=== PATIENT | female | born 1965 | race Caucasian/White ===

== ENCOUNTER 2017-09-04 12:46 | Emergency (ER) | payer BC, OTHER ==
--- NOTE | 2017-09-04 13:45 | RAD ---
INDICATION: RIGHT side chest pain for 3 weeks exacerbated by coughing. COMPARISON: No relevant prior exams available on the [facility] PACS for comparison. TECHNIQUE: Dual energy PA and routine lateral views of the chest were obtained. REPORT: Clear lungs and pleural spaces. Negative for pneumothorax. The heart, pulmonary vasculature, and mediastinal contours are unremarkable. No rib fracture evident. Gallbladder fossa level surgical clips. IMPRESSION: No evidence for acute intrathoracic disease.
[2017-09-04 15:22] LABS: ABS Basophils 0.1 10^3/ul (0-0.2); ABS Eosinophils 0.2 10^3/ul (0-0.6); ABS Lymphocytes 1.8 10^3/ul (1.0-4.8); ABS Monocytes 0.5 10^3/ul (0-0.8); ABS Nucleated RBC 0 10^3/ul; Eosinophil % 2.3 % (0-6); Hematocrit 46 % (35-47); Hemoglobin 15.3 g/dl (12.0-16.0); Lymphocyte % 20.6 % (25-47); Mean Corpuscular HGB Conc 34 g/dl (31-36); Mean Corpuscular Hemoglobin 28 pg (27-31); Mean Corpuscular Volume 84 fL (80-97); Mean Platelet Volume 8 um3 (7.4-10.4); Nucleated Red Blood Cells % 0; Platelet Count 284 10^3/ul (150-450); Red Blood Count 5.42 10^6/ul (4.0-5.4); Red Cell Distribution Width 15 % (10.5-15); White Blood Count 8.7 10^3/ul (3.5-10.8)
[2017-09-04 15:44] LABS: EGFR Non-African American 71.5 (>60)
[2017-09-04 17:10] LABS: INR 0.98 (0.77-1.02)
[2017-09-04 18:13] VITALS: BP 117/73
--- NOTE | 2017-09-04 21:19 | ED ---
Nakul Ivey Jennifer, scribed for Brian Gan MD on 09/04/17 at 1543 . HPI Chest Pain - HPI Summary HPI Summary: The patient is a 51 year old female who presents to the ED with pain in the upper right chest for the past three weeks. She describes it as a constant pain , and last night it began to feel like a pressure. She additionally complains of a bit of shortness of breath and cough. The patient denies swelling in the legs, nausea, lightheadedness, sweats, and any recent injuries. - History of Current Complaint Chief Complaint: EDChestPainROMI Time Seen by Provider: 09/04/17 15:36 Hx Obtained From: Patient Onset/Duration: Started Weeks Ago - 3 weeks, Still Present, Worse Since Timing: Constant Initial Severity: Mild Current Severity: Mild Pain Intensity: 4 Pain Scale Used: 0-10 Numeric Chest Pain Radiates: No Aggravating Factor(s): Nothing Alleviating Factor(s): Nothing Associated Signs and Symptoms: Positive: Other: - Shortness of breath, cough. NEGATIVE: swelling in legs, nausea, lightheadedness, sweats, innjuries - Allergy/Home Medications Allergies/Adverse Reactions: Allergies Allergy/AdvReac Type Severity Reaction Status Date / Time No Known Allergies Allergy Verified 09/04/17 15:44 Home Medications: Home Medications NK [No Home Medications Reported] 09/04/17 [History Confirmed 09/04/17] PMH/Surg Hx/FS Hx/Imm Hx Endocrine/Hematology History: Denies: Hx Diabetes Cardiovascular History: Denies: Hx Hypertension - Immunization History Date of Tetanus Vaccine: 04/20/2006 Infectious Disease History: No Infectious Disease History: Denies: Traveled Outside the [place] in Last 30 Days - Family History Known Family History: Positive: Diabetes - Maternal grandmother - Social History Substance Use Type: Reports: None Review of Systems Negative: Skin Diaphoresis Positive: Chest Pain Positive: Shortness Of Breath, Cough Negative: Nausea Negative: Edema Neurological: Negative - Lightheaded All Other Systems Reviewed And Are Negative: Yes Physical Exam - Summary Physical Exam Summary: Appearance: The patient is well-nourished in no acute distress and in no acute pain. Skin: The skin is warm and dry and skin color reflects adequate perfusion. HEENT: ~The head is normocephalic and atraumatic. The pupils are equal and reactive. The conjunctivae are clear and without drainage. ~Nares are patent and without drainage. ~Mouth reveals moist mucous membranes and the throat is without erythema and exudate. ~The external ears are intact. The ear canals are patent and without drainage. The tympanic membranes are intact. Neck: the neck is supple with full range of motion and non-tender. There are no carotid bruits. ~There is no neck vein distension. Respiratory: Chest is non-tender. ~Lungs are clear to auscultation and breath sounds are symmetrical and equal. Cardiovascular: Heart is regular rate and rhythm. ~There is no murmur or rub auscultated. ~~There is no peripheral edema and pulses are symmetrical and equal. Abdomen: The abdomen is soft and non-tender. ~There are normal bowel sounds heard in all four quadrants and there is no organomegaly palpated. Musculoskeletal: There is no back tenderness noted. ~Extremities are non-tender with full range of motion. ~There is good capillary refill. ~There is no peripheral edema or calf tenderness elicited. Neurological: Patient is alert and oriented to person, place and time. ~The patient has symmetrical motor strength in all four extremities. ~Cranial nerves are grossly intact. Deep tendon reflexes are symmetrical and equal in all four extremities. Psychiatric: The patient has an appropriate affect and does not exhibit any anxiety or depression. Triage Information Reviewed: Yes Vital Signs On Initial Exam: Initial Vitals Temp Pulse Resp BP Pulse Ox 97.7 F 84 16 132/73 95 09/04/17 12:55 09/04/17 12:55 09/04/17 12:55 09/04/17 12:55 09/04/17 12:55 Vital Signs Reviewed: Yes Diagnostics - Vital Signs Vital Signs Temp Pulse Resp BP Pulse Ox 09/04/17 14:47 97.9 F 83 17 139/90 96 09/04/17 12:55 97.7 F 84 16 132/73 95 - Laboratory Lab Results: Lab Results 09/04/17 09/04/17 09/04/17 Range/Units 14:28 14:28 14:28 WBC 8.7 (3.5-10.8) 10^3/ul RBC 5.42 H (4.0-5.4) 10^6/ul Hgb 15.3 (12.0-16.0) g/dl Hct 46 (35-47) % MCV 84 (80-97) fL MCH 28 (27-31) pg MCHC 34 (31-36) g/dl RDW 15 (10.5-15) % Plt Count 284 (150-450) 10^3/ul MPV 8 (7.4-10.4) um3 Neut % (Auto) 69.7 (38-83) % Lymph % (Auto) 20.6 L (25-47) % Orange % (Auto) 5.8 (1-9) % Eos % (Auto) 2.3 (0-6) % Baso % (Auto) 1.6 (0-2) % Absolute Neuts (auto) 6.0 (1.5-7.7) 10^3/ul Absolute Lymphs (auto) 1.8 (1.0-4.8) 10^3/ul Absolute Monos (auto) 0.5 (0-0.8) 10^3/ul Absolute Eos (auto) 0.2 (0-0.6) 10^3/ul Absolute Basos (auto) 0.1 (0-0.2) 10^3/ul Absolute Nucleated RBC 0 10^3/ul Nucleated RBC % 0 Sodium Pending Potassium Pending Chloride Pending Carbon Dioxide Pending Anion Gap Pending BUN Pending Creatinine Pending Est GFR ( Amer) Pending Est GFR (Non-Af Amer) Pending BUN/Creatinine Ratio Pending Glucose Pending Lactic Acid 1.4 (0.5-2.0) mmol/L Calcium Pending Total Bilirubin Pending AST Pending ALT Pending Alkaline Phosphatase Pending Troponin I 0.00 (<0.04) ng/mL Total Protein Pending Albumin Pending Globulin Pending Albumin/Globulin Ratio Pending Result Diagrams: 09/04/17 14:28 09/04/17 14:28 Lab Statement: Any lab studies that have been ordered have been reviewed, and results considered in the medical decision making process. - Radiology CXR Xray Interpretation: No Acute Changes - No evidence for acute intrathoracic disease. Dr. Gan has reviewed this report. Radiology Interpretation Completed By: Radiologist - EKG 13:13 Cardiac Rate: NL EKG Rhythm: Sinus Rhythm - 71 BPM Chest Pain Course/Dx - Course Course Of Treatment: Ms. Smith presented with a chest pain that she has had for many days. She got concerned that it could be her heart. Her W/U including two troponins and d-dimer was negative and I recommmended close F/U. - Diagnoses Provider Diagnoses: Chest pain Discharge - Discharge Plan Condition: Stable Disposition: HOME Patient Education Materials: Chest Pain (ED) Referrals: Lorrie Romero MD [Primary Care Provider] - 3 Days Additional Instructions: Follow up with your primary care physician in three days. Return to the emergency department for any new or worsening symptoms. The documentation as recorded by the Nakul calvo Jennifer accurately reflects the service I personally performed and the decisions made by me, Brian Gan MD.
== END 2017-09-04 18:15 | disposition home or self-care (01) ==
LOC: ED 12:46
DX: R07.89 Other chest pain (principal)
CPT/HCPCS: 36415; 71046; 80053; 83605; 84484; 85025; 85379; 85610; 93005; 99282

== ENCOUNTER 2018-05-03 18:28 | Emergency (ER) | payer OTHER ==
[2018-05-03] MEDS ORDERED: NS 0.9% 1000 ML* 1,000 ML IV ONE (20:27)
[2018-05-03 20:48] LABS: ABS Basophils 0.1 10^3/ul (0-0.2); ABS Eosinophils 0.2 10^3/ul (0-0.6); ABS Lymphocytes 1.7 10^3/ul (1.0-4.8); ABS Monocytes 0.5 10^3/ul (0-0.8); ABS Neutrophils 3.9 10^3/ul (1.5-7.7); ABS Nucleated RBC 0 10^3/ul; Eosinophil % 2.7 % (0-6); Hematocrit 41 % (35-47); Hemoglobin 13.8 g/dl (12.0-16.0); Lymphocyte % 26.7 % (25-47); Mean Corpuscular HGB Conc 34 g/dl (31-36); Mean Corpuscular Hemoglobin 28 pg (27-31); Mean Corpuscular Volume 84 fL (80-97); Mean Platelet Volume 8.7 um3 (7.4-10.4); Nucleated Red Blood Cells % 0.3; Platelet Count 249 10^3/ul (150-450); Red Cell Distribution Width 15 % (10.5-15); White Blood Count 6.3 10^3/ul (3.5-10.8)
--- NOTE | 2018-05-03 20:50 | RAD ---
EXAM: CT Head Without Intravenous Contrast EXAM DATE/TIME: 05/03/2018 8:47 PM CLINICAL HISTORY: 52 years old, female; Injury or trauma; Fall; Patient HX: Had syncopal episode and fell and hit head; Additional info: Head injury TECHNIQUE: Axial computed tomography images of the head/brain without intravenous contrast. All CT scans at this facility use at least one of these dose optimization techniques: automated exposure control; mA and/or kV adjustment per patient size (includes targeted exams where dose is matched to clinical indication); or iterative reconstruction. COMPARISON: No relevant prior studies available. FINDINGS: Brain: Normal. No hemorrhage. No significant white matter disease. No edema. Ventricles: Normal. No ventriculomegaly. Bones/joints: Normal. No acute fracture. Sinuses: Normal as visualized. No acute sinusitis. Mastoid air cells: Normal as visualized. No mastoid effusion. Soft tissues: Normal. IMPRESSION: No acute intracranial pathology. To contact [facility] with a general question: [facility] - [phone] For direct physician to physician contact: Physician Hotline - [phone] [facility] ([facility] Facility ID #[id number])
--- NOTE | 2018-05-03 20:52 | ED ---
Syncope/Near Syncope - HPI Summary HPI Summary: Patient is a 52 y/o F w/ c/o syncopal episode today at 1500. She reports that she was at a table with some friends, was drinking water, laughed and began to choke on water, stood up and passed out, hitting her head. She states she did not feel the episode onsetting. Bladder incontinence is denied. She notes that at the time she was at a winery but states she had not been drinking a lot of alcohol. Patient reports a similar previous episode six months ago. She states that for this episode she woke up in the middle of the night trying to catch her breath, She states she went to get up too quickly and passed out. Patient reports that she went to PCP after this episode, PCP did not believe it was anything concerning. MCCLENDON is reported as well, patient notes she took ASA with relief in Sx. Hx of DVT and sleep apnea is noted, patient states she is on a breathing machine for the past couple of months. On triage, pain is rated 6/10, nothing is noted to aggravate/alleviate Sx. and it is noted that patient took 500 mg ibuprofen 1730 [employer]. Home medications and allergies are reviewed. - History Of Current Complaint Chief Complaint: EDHeadInjury Time Seen by Provider: 05/03/18 20:11 Hx Obtained From: Patient Onset/Duration: Lasting Hours - syncope occurred 1500 today, Still Present - MCCLENDON , Resolved - syncope Timing: Constant - MCCLENDON Context: Witnessed Activity At Onset: Other - standing up Associated Head Trauma: Yes Aggravating Factor(s): Nothing Alleviating Factor(s): Nothing Associated Signs And Symptoms: Head Trauma (Recent), Headache, Other - NEGATIVE : incontinence - Allergies/Home Medications Allergies/Adverse Reactions: Allergies Allergy/AdvReac Type Severity Reaction Status Date / Time No Known Allergies Allergy Verified 09/04/17 15:44 PMH/Surg Hx/FS Hx/Imm Hx Endocrine/Hematology History: Denies: Hx Diabetes Cardiovascular History: Reports: Hx Deep Vein Thrombosis Denies: Hx Hypertension Respiratory History: Reports: Hx Sleep Apnea - Immunization History Date of Tetanus Vaccine: 04/20/2006 Infectious Disease History: No Infectious Disease History: Denies: Traveled Outside the [place] in Last 30 Days - Family History Known Family History: Positive: Diabetes - Maternal grandmother - Social History Alcohol Use: Occasionally Substance Use Type: Reports: None Smoking Status (MU): Never Smoked Tobacco Review of Systems Positive: other - NEGATIVE: bladder incontinence Neurological: Other - head injury Positive: Headache, Syncope All Other Systems Reviewed And Are Negative: Yes Physical Exam - Summary Physical Exam Summary: VITAL SIGNS: Reviewed. GENERAL: Patient is a well-developed and nourished female who is lying comfortable in the stretcher. Patient is not in any acute respiratory distress. HEAD AND FACE: No signs of trauma. No ecchymosis, hematomas or skull depressions. No sinus tenderness. EYES: PERRLA, EOMI x 2, No injected conjunctiva, no nystagmus. EARS: Hearing grossly intact. Ear canals and tympanic membranes are within normal limits. MOUTH: Oropharynx within normal limits. NECK: Supple, trachea is midline, no adenopathy, no JVD, no carotid bruit, no c- spine tenderness, neck with full ROM. CHEST: Symmetric, no tenderness at palpation LUNGS: Clear to auscultation bilaterally. No wheezing or crackles. CVS: Regular rate and rhythm, S1 and S2 present, no murmurs or gallops appreciated. ABDOMEN: Soft, non-tender. No signs of distention. No rebound no guarding, and no masses palpated. Bowel sounds are normal. EXTREMITIES: FROM in all major joints, no edema, no cyanosis or clubbing. NEURO: Alert and oriented x 3. No acute neurological deficits. Speech is normal and follows commands. GCS 15. SKIN: Dry and warm Triage Information Reviewed: Yes Vital Signs On Initial Exam: Initial Vitals Temp Pulse Resp BP Pulse Ox 97.7 F 66 14 105/63 94 05/03/18 18:30 05/03/18 18:30 05/03/18 18:30 05/03/18 18:30 05/03/18 18:30 Vital Signs Reviewed: Yes Diagnostics - Vital Signs Vital Signs Temp Pulse Resp BP Pulse Ox 05/03/18 18:30 97.7 F 66 14 105/63 94 - Laboratory Result Diagrams: 05/03/18 20:37 05/03/18 20:37 Lab Statement: Any lab studies that have been ordered have been reviewed, and results considered in the medical decision making process. - CT brain ct CT Interpretation: No Acute Changes CT Interpretation Completed By: Radiologist - Brain CT showed no acute intracranial abnormality. This report was reviewed by ed physician - EKG 2036 Cardiac Rate: NL - rate of 62 bpm EKG Rhythm: Sinus Rhythm EKG Interpretation: Normal axis. Normal interval. No ischemic changes. Re-Evaluation - Re-Evaluation First Eval Re-Evaluation Time: 21:30 Change: Improved Comment: Patient reports feeling better, denies dizziness. Discussed that episode was most likely vasovagal syncopy. Patient was instructed to follow up with PCP, holter monitor is recommended. She is agreeable with discharge. Course/Dx Course Of Treatment: Patient is a 52 y/o F w/ c/o syncopal episode today at 1500. She reports that she was at a table with some friends, was drinking water , laughed and began to choke on water, stood up and passed out, hitting her head. She states she did not feel the episode onsetting. Bladder incontinence is denied. She notes that at the time she was at a winery but states she had not been drinking a lot of alcohol. Patient reports a similar previous episode six months ago. She states that for this episode she woke up in the middle of the night trying to catch her breath, She states she went to get up too quickly and passed out. Patient reports that she went to PCP after this episode, PCP did not believe it was anything concerning. MCCLENDON is reported as well, patient notes she took ASA with relief in Sx. Hx of DVT and sleep apnea is noted, patient states she is on a breathing machine for the past couple of months. Physical exam showed patient is alert and oriented x 3. No acute neurological deficits. Speech is normal and follows commands. GCS 15. During ED course, patient was given fluids. Brain CT showed no acute intracranial abnormality. EKG showed sinus rhythm w/ rate of 62 BPM, Normal axis. Normal interval. No ischemic changes. 2129 - Patient reports feeling better, denies dizziness. Discussed that episode was most likely vasovagal syncopy. Patient was instructed to follow up with PCP, holter monitor is recommended. She is agreeable with discharge. Dx of vasovagal episode. - Diagnoses Provider Diagnoses: Vasovagal episode Discharge - Sign-Out/Discharge Documenting (check all that apply): Patient Departure - discharge - Discharge Plan Condition: Stable Disposition: HOME Patient Education Materials: Syncope (ED) Referrals: Lorrie Romero MD [Primary Care Provider] - 2 Days Additional Instructions: RETURN TO THE EMERGENCY DEPARTMENT FOR CHANGING OR WORSENING SYMPTOMS. FOLLOW UP WITH PRIMARY CARE PHYSICIAN IN 1-2 DAYS. - Attestation Statements Document Initiated by Scribe: Yes Documenting Scribe: Armin Kelley Provider For Whom Scribe is Documenting (Include Credential): Jatin Verma MD Scribe Attestation: Armin Ivey , scribed for Jatin Verma MD on 05/03/18 at 2203.
[2018-05-03 20:57] LABS: INR 1.03 (0.77-1.02)
[2018-05-03 21:05] LABS: EGFR Non-African American 78.7 (>60)
[2018-05-03 21:53] VITALS: BP 113/71
== END 2018-05-03 21:55 | disposition home or self-care (01) ==
LOC: ED 18:28
DX: R55 Syncope and collapse (principal); S09.90XA Unspecified injury of head, initial encounter; R51 Headache; W18.00XA Striking against unspecified object with subsequent fall, initial encounter; Y92.9 Unspecified place or not applicable
CPT/HCPCS: 36415; 70450; 80053; 82550; 83605; 83735; 84443; 84484; 85025; 85610; 85730; 93005; 99282

== ENCOUNTER 2019-06-04 13:26 | Emergency (ER) | payer OTHER ==
[2019-06-04 13:43] VITALS: BP 122/76
--- NOTE | 2019-06-04 13:44 | UC ---
Truncal Trauma HPI - HPI Summary HPI Summary: 53 yo female presents with RIGHT chest wall pain. She tells me that on 05/29 she was drinking at a bar and sitting on a stool and fell backwards onto the floor landing on her right side and chest. Since that time has had right rib pain that is worse with cough and deep breaths. She has been taking tylenol and ibuprofen for discomfort with little relief. Feels better with rest, but is worse with movement. Denies SOB, chest pain, n/v. - History Of Current Complaint Chief Complaint: UCTrauma Stated Complaint: PAIN IN UPPER RIB AREA FELL Time Seen by Provider: 06/04/19 13:44 Hx Obtained From: Patient Onset/Duration: Sudden Onset Severity Initially: Moderate Severity Currently: Moderate Pain Intensity: 6 Pain Scale Used: 0-10 Numeric - Allergies/Home Medications Allergies/Adverse Reactions: Allergies Allergy/AdvReac Type Severity Reaction Status Date / Time No Known Allergies Allergy Verified 09/04/17 15:44 Home Medications: Home Medications Ibuprofen TAB* [Motrin TAB* 800 MG] 800 mg PO ONCE 06/04/19 [History Confirmed 06/04/19] PMH/Surg Hx/FS Hx/Imm Hx - Additional Past Medical History Additional PMH: None - Surgical History Surgical History: Yes Surgery Procedure, Year, and Place: R meniscus repair. 1993. gallbladder - Family History Known Family History: Positive: Diabetes - Maternal grandmother - Social History Occupation: Employed Full-time Lives: With Family Alcohol Use: Occasionally Substance Use Type: None Smoking Status (MU): Never Smoked Tobacco Review of Systems All Other Systems Reviewed And Are Negative: No Constitutional: Positive: Negative Skin: Positive: Negative Respiratory: Positive: Negative Cardiovascular: Positive: Negative Gastrointestinal: Positive: Negative Musculoskeletal: Positive: Other: - Right chest wall pain Neurological: Positive: Negative Psychological: Positive: Negative Physical Exam - Summary Physical Exam Summary: GENERAL: NAD. WDWN. No pain distress. SKIN: No rashes, sores, or open wounds. NECK: Supple. Nontender. No lymphadenopathy. CHEST: CTAB. No r/r/w. No accessory muscle use. Breathing comfortably and in no distress. CV: RRR. Pulses intact. Brisk cap refill. MSK: RIGHT CHEST WALL: TTP about ~6th-7th anterior and midaxillary rib. Pain reproduced with movement of right UE. NEURO: Alert. PSYCH: Age appropriate behavior. Triage Information Reviewed: Yes Vital Signs: Initial Vital Signs Temp 98 F 06/04/19 13:36 Pulse 83 06/04/19 13:36 Resp 20 06/04/19 13:36 BP 122/76 06/04/19 13:36 Pulse Ox 97 06/04/19 13:36 Vital Signs Reviewed: Yes Diagnostics - Radiology Right RIB XR Radiology Interpretation Completed By: Radiologist Summary of Radiographic Findings: IMPRESSION: NO EVIDENCE FOR FRACTURE. Truncal Trauma Course/Dx - Course Course Of Treatment: XR as above. Discussed with pt. Suspect rib contusion. Advised to continue tylenol/ibuprofen, rest, and will rx for flexeril. Advised to take slow deep breaths. F/u with PCP if symptoms do not improve - Differential Dx/Diagnosis Provider Diagnosis: Rib contusion Discharge ED - Sign-Out/Discharge Documenting (check all that apply): Patient Departure All imaging exams completed and their final reports reviewed: Yes - Discharge Plan Condition: Stable Disposition: HOME Prescriptions: Cyclobenzaprine TAB* [Flexeril 10 MG TAB*] 10 mg PO BID PRN #14 tab PRN Reason: Pain - Mild Patient Education Materials: Rib Contusion (ED) Referrals: Lorrie Romero MD [Primary Care Provider] - Additional Instructions: If you develop a fever, shortness of breath, chest pain, new or worsening symptoms - please call your PCP or go to the ED immediately. Rest and apply ice/heat the area of discomfort May continue taking ibuprofen as directed for discomfort Practice slow deep breaths - Billing Disposition and Condition Condition: STABLE Disposition: Home
== END 2019-06-04 14:45 | disposition home or self-care (01) ==
LOC: UCEAST 13:26
DX: S20.20XA Contusion of thorax, unspecified, initial encounter (principal); Z79.1 Long term (current) use of non-steroidal anti-inflammatories (NSAID); W08.XXXA Fall from other furniture, initial encounter; Y92.89 Other specified places as the place of occurrence of the external cause
CPT/HCPCS: 99212; G0463